=== PATIENT | male | born 1980 | race Caucasian/White ===

== ENCOUNTER 2018-06-10 18:45 | Inpatient (IN) | payer MEDICARE, OTHER ==
[~2018-06-10] VITALS: Ht 185.4 cm; Wt 131.8 kg
--- NOTE | ~2018-06-10 | CN ---
PATIENT NAME:RONEL TIWARI MEDICAL RECORD: [id number] : 76 LOCATION:[facility] D.2109 ADMIT DATE: 06/10/18 ACCOUNT: [id number] CONSULTING PHYSICIAN: SO THOMAS REFERRING PHYSICIAN: QIAN MCKEON MD DATE OF CONSULTATION: 06/11/2018 HISTORY OF PRESENT ILLNESS: This is a 37-year-old man who was moving from [place] to [place]. The patient noted onset of chest congestion and on arrival to [place], the patient felt that there was some mucus inside the lungs, tried to cough it up, but was unsuccessful and all of a sudden was able to cough thick secretions with some blood in it. The patient subsequently had severe chest pains, which was worse on touching. He was unable to take a deep breath. The patient was seen in the Emergency Room. CT scan for pulmonary embolism was negative. He was noted to have mild perihilar infiltrate on the right. The patient was admitted for further evaluation and treatment. PAST MEDICAL HISTORY: Remarkable for hypertension and pulmonary embolism. PAST SURGICAL HISTORY: Includes appendectomy illiotomy. ALLERGIES: There are no known allergies. MEDICATIONS ON ADMISSION: Include metoprolol XL 25 mg daily, Plavix 75 mg b.i.d., lisinopril 5 mg b.i.d., Protonix 40 mg b.i.d., Bentyl 20 mg t.i.d., sulfasalazine Azulfidine 2000 mg b.i.d., morphine 15 mg b.i.d., oxycodone 5 mg q. 4 hours p.r.n. FAMILY HISTORY: Remarkable for cardiovascular disease, lung disease, cancer, hypertension. SOCIAL HISTORY: The patient used to smoke in the past. Does not smoke, drink, or use illicit drugs. REVIEW OF SYSTEMS: GENERAL AND CONSTITUTIONAL: The patient denies any fever or chills, weight loss. SHEENT: There is no headache, nasal drainage, or sore throat. CARDIOPULMONARY: The patient denies any orthopnea or PND. He has anterior right costochondral pain, worse with deep breathing. GASTROINTESTINAL: There is no nausea, vomiting, or abdominal pain. GENITOURINARY: There is no frequency or dysuria. PHYSICAL EXAMINATION: GENERAL: Reveals a young man who is in no acute distress. VITAL SIGNS: Temperature 98.8, heart rate of 81, respiratory rate of 18, blood pressure 107/58. SHEENT: Unremarkable. NECK: Supple. CHEST: Showed right costochondral tenderness. The patient is hypoventilating because of pain. CARDIAC: Shows no jugular venous distention, murmur, or gallops. ABDOMEN: Benign. EXTREMITIES: There is no clubbing, cyanosis, or edema. CONSULT REPORT [id number] RNOEL TIWARI LABORATORY EXAMINATION: Showed white count is 7.5, hemoglobin 11 and platelet count is 325,000. Chemistry is unremarkable. D-dimer is 0.75. Coronary angiogram, pulmonary emboli cannot be excluded. There is airspace disease throughout both lower lobes, greater on the right than the left. Chest x-ray showed right perihilar airspace disease suggesting pneumonia. Doppler venogram showed no acute deep venous thrombosis of bilateral lower extremities. ASSESSMENT: 1. Pneumonia. 2. Costochondritis. 3. Hypertension. 4. History of blood clots. Wells criteria does not suggest any acute pulmonary embolism. PLAN: 1. Continue antibiotics. 2. Bronchodilators. 3. Muscle relaxant and anti-inflammatory agents. 4. DVT prophylaxis with Lovenox. Thank you Dr. Mckeon for this consultation. Time spent 60 minutes. TRANSINT:[id number] Voice Confirmation ID: [id number] DOCUMENT ID: [id number] SO THOMAS at 1721 CC: [id number] DICTATION DATE: 06/11/18 1700 RELAY MECHANIC: 06/12/18 0201 ADM IN [place] [id number] [place] [address]
--- NOTE | ~2018-06-10 | PN ---
PATIENT:RONEL TIWARI MEDICAL RECORD: [id number] LOCATION:D. D.210 ADMISSION DATE: 06/10/18 PROGRESS NOTE DATE OF SERVICE: 06/12/2018 SUBJECTIVE: This is a 37-year-old man who reportedly has some congestion with thick secretions and coughed very hard and subsequently had chest pain. The patient was seen in the Emergency Room and admission was advised. EKG was normal. Troponin I was also normal. The patient had costochondral tenderness. The patient still complains of pain. PHYSICAL EXAMINATION: GENERAL: Physical exam reveals a young man who is in no acute distress. VITAL SIGNS: Temperature 97.9, heart rate of 79, respiratory rate of 20, blood pressure 116/66, and saturation is 94%. SHEENT: Unremarkable. NECK: Supple. LUNGS: Clear. There is chest wall tenderness in the right costochondral area. Auscultation is clear. HEART: Exam shows no jugular venous distention and no murmur or gallops. ABDOMEN: Benign. EXTREMITIES: No clubbing, cyanosis or edema. LABORATORY DATA: Exam showed a white count of 7.1, hemoglobin 11.3, and platelet count is 349. Chemistry is unremarkable. Creatinine is 0.9, BUN is 7. Chest x-ray showed no acute chest findings. ASSESSMENT: Acute costochondritis. The patient is on Soma as well as pain medications. PLAN: 1. Continue treatment. 2. Disposition per PCP or attending. 3. We will sign off the patient and if needed, please call. 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
[2018-06-10] MEDS ORDERED: TOPROL XL25 MG PO (18:53)
[2018-06-10] MEDS ORDERED: PLAVIX75 MG PO (18:54)
[2018-06-10] MEDS ORDERED: PROTONIX40 MG PO (18:55)
[2018-06-10] MEDS ORDERED: LISINOPRIL5 MG PO (18:55)
[2018-06-10] MEDS ORDERED: BENTYL 20 MG TA20 MG PO (18:56)
[2018-06-10] MEDS ORDERED: MORPHINE IMMEDI15 MG PO (18:57)
[2018-06-10] MEDS ORDERED: AZULFIDINE500 MG PO (18:57)
[2018-06-10] MEDS ORDERED: OXYCODONE HCL5 MG PO (18:58)
[2018-06-10 19:18] LABS: BASOPHILS 0.2 % (0-2); EOSINOPHILS 3.5 % (0-7); HEMATOCRIT 39.2 % (42.0-54.0); HEMOGLOBIN 12.5 g/dL (13.5-17.5); IMMATURE GRANULOCYTES 0.4 % (0-5); LYMPHOCYTES 28.9 % (15-50); MCHC 31.9 g/dL (31.0-37.0); MCV 84.7 fL (80.0-100.0); MEAN PLATELET VOLUME 9.8 fL (7.4-10.4); MONOCYTES 9.7 % (2-11); NEUTROPHILS 57.3 % (40-80); PLATELET COUNT 390 10x3/uL (130-400); RBC 4.63 10x6/uL (4.20-6.10); RDW 15.8 % (11.5-14.5)
[2018-06-10 19:45] LABS: ALBUMIN 3.1 g/dL (3.4-5.0); ALKALINE PHOSPHATASE 111 U/L (46-116); ALT (SGPT) 62 U/L (10-68); BILIRUBIN - TOTAL 0.33 mg/dL (0.2-1.3); CALC OSMOLALITY 280 mosm/kg (275-300); CALCIUM 8.9 mg/dL (8.5-10.1); CARBON DIOXIDE 26.8 mmol/L (21.0-32.0); CHLORIDE - SERUM 105 mmol/L (98-107); CREATININE - SERUM 1.2 mg/dL (0.6-1.3); GLUCOSE 99 mg/dL (74-106); POTASSIUM - SERUM 3.9 mmol/L (3.5-5.1); PROTEIN - SERUM 7.6 g/dL (6.4-8.2); SODIUM 142 mmol/L (136-145); UREA NITROGEN 8 mg/dL (7-18); eGFR NON AFRICAN AMERICAN 72 mL/min (90-120)
[2018-06-10 19:47] LABS: CKMB 0.4 U/L (0.0-3.6)
[2018-06-10 19:48] LABS: TROPONIN-I < 0.017 ng/mL (0.000-0.060)
[2018-06-10 21:30] VITALS: BP 145/86
[2018-06-11] VITALS (8 sets, daily range): BP systolic 107–134; BP diastolic 58–80; BMI 38.3; BMI 38.2
[2018-06-11 05:27] LABS: CALC OSMOLALITY 281 mosm/kg (275-300); CALCIUM 7.7 mg/dL (8.5-10.1); CARBON DIOXIDE 24.4 mmol/L (21.0-32.0); CHLORIDE - SERUM 108 mmol/L (98-107); GLUCOSE 102 mg/dL (74-106); POTASSIUM - SERUM 3.8 mmol/L (3.5-5.1); SODIUM 142 mmol/L (136-145); UREA NITROGEN 9 mg/dL (7-18)
[2018-06-11 05:32] LABS: CREATININE - SERUM 0.8 mg/dL (0.6-1.3); eGFR NON AFRICAN AMERICAN > 90 mL/min (90-120)
[2018-06-11 05:47] LABS: BASOPHILS 0.3 % (0-2); EOSINOPHILS 3.4 % (0-7); HEMATOCRIT 35.2 % (42.0-54.0); IMMATURE GRANULOCYTES 0.3 % (0-5); LYMPHOCYTES 26.8 % (15-50); MCH 26.4 pg (26.0-34.0); MCHC 31.3 g/dL (31.0-37.0); MCV 84.6 fL (80.0-100.0); MEAN PLATELET VOLUME 9.8 fL (7.4-10.4); MONOCYTES 10.2 % (2-11); PLATELET COUNT 325 10x3/uL (130-400); RBC 4.16 10x6/uL (4.20-6.10); RDW 15.9 % (11.5-14.5); WBC 7.5 10x3/uL (4.8-10.8)
[2018-06-12 04:00] VITALS: BP 126/80
[2018-06-12 05:40] LABS: BASOPHILS 0.3 % (0-2); EOSINOPHILS 3.1 % (0-7); HEMATOCRIT 36.5 % (42.0-54.0); HEMOGLOBIN 11.3 g/dL (13.5-17.5); IMMATURE GRANULOCYTES 0.3 % (0-5); LYMPHOCYTES 31.8 % (15-50); MCH 26.3 pg (26.0-34.0); MCV 85.1 fL (80.0-100.0); MONOCYTES 10.9 % (2-11); NEUTROPHILS 53.6 % (40-80); PLATELET COUNT 349 10x3/uL (130-400); RBC 4.29 10x6/uL (4.20-6.10); RDW 15.6 % (11.5-14.5); WBC 7.1 10x3/uL (4.8-10.8)
[2018-06-12 06:41] LABS: ALBUMIN 2.5 g/dL (3.4-5.0); ALKALINE PHOSPHATASE 94 U/L (46-116); ALT (SGPT) 51 U/L (10-68); CALC OSMOLALITY 276 mosm/kg (275-300); CALCIUM 7.8 mg/dL (8.5-10.1); CARBON DIOXIDE 25.6 mmol/L (21.0-32.0); CHLORIDE - SERUM 106 mmol/L (98-107); CREATININE - SERUM 0.9 mg/dL (0.6-1.3); GLUCOSE 90 mg/dL (74-106); POTASSIUM - SERUM 3.6 mmol/L (3.5-5.1); PROTEIN - SERUM 6.6 g/dL (6.4-8.2); SODIUM 140 mmol/L (136-145); UREA NITROGEN 7 mg/dL (7-18); eGFR NON AFRICAN AMERICAN > 90 mL/min (90-120)
[2018-06-12 08:37] VITALS: BP 132/70
[2018-06-12 12:27] VITALS: BP 116/66
[2018-06-12 20:00] VITALS: BP 120/62
[2018-06-13] VITALS: BP 114/65
[2018-06-13 04:00] VITALS: BP 116/69
[2018-06-13 05:06] LABS: BASOPHILS 0.1 % (0-2); EOSINOPHILS 1.8 % (0-7); HEMATOCRIT 35.8 % (42.0-54.0); HEMOGLOBIN 11.2 g/dL (13.5-17.5); IMMATURE GRANULOCYTES 0.4 % (0-5); LYMPHOCYTES 21.4 % (15-50); MCH 26.4 pg (26.0-34.0); MCHC 31.3 g/dL (31.0-37.0); MCV 84.2 fL (80.0-100.0); MEAN PLATELET VOLUME 9.8 fL (7.4-10.4); MONOCYTES 11.9 % (2-11); NEUTROPHILS 64.4 % (40-80); PLATELET COUNT 317 10x3/uL (130-400); RBC 4.25 10x6/uL (4.20-6.10); RDW 15.6 % (11.5-14.5); WBC 7.7 10x3/uL (4.8-10.8)
[2018-06-13 05:48] LABS: ALBUMIN 2.6 g/dL (3.4-5.0); ALKALINE PHOSPHATASE 94 U/L (46-116); ALT (SGPT) 55 U/L (10-68); BILIRUBIN - TOTAL 0.53 mg/dL (0.2-1.3); CALC OSMOLALITY 275 mosm/kg (275-300); CALCIUM 8.3 mg/dL (8.5-10.1); CHLORIDE - SERUM 103 mmol/L (98-107); GLUCOSE 95 mg/dL (74-106); POTASSIUM - SERUM 3.5 mmol/L (3.5-5.1); PROTEIN - SERUM 6.8 g/dL (6.4-8.2); SODIUM 139 mmol/L (136-145); UREA NITROGEN 7 mg/dL (7-18); eGFR NON AFRICAN AMERICAN 88 mL/min (90-120)
[2018-06-13 09:39] VITALS: BP 106/75
[2018-06-13 11:17] LABS: % SATURATION 5 % (15-55); IRON 18 ug/dl (35-150); TOTAL IRON BIND CAPACITY 309 ug/dl (260-445); UNSAT IRON BIND CAPACITY 291 ug/dl (150-375)
[2018-06-13 13:23] VITALS: Ht 185.4 cm; Wt 131.8 kg
[2018-06-13 17:05] VITALS: BP 114/60
[2018-06-13 20:36] VITALS: BP 110/53
[2018-06-14 04:59] VITALS: BP 121/56
[2018-06-14 06:08] LABS: BASOPHILS 0.4 % (0-2); EOSINOPHILS 2.2 % (0-7); HEMATOCRIT 34.7 % (42.0-54.0); HEMOGLOBIN 10.8 g/dL (13.5-17.5); IMMATURE GRANULOCYTES 0.4 % (0-5); LYMPHOCYTES 32.7 % (15-50); MCH 26.3 pg (26.0-34.0); MCHC 31.1 g/dL (31.0-37.0); MCV 84.6 fL (80.0-100.0); MEAN PLATELET VOLUME 9.7 fL (7.4-10.4); MONOCYTES 10.4 % (2-11); NEUTROPHILS 53.9 % (40-80); PLATELET COUNT 330 10x3/uL (130-400); RDW 15.6 % (11.5-14.5); WBC 6.7 10x3/uL (4.8-10.8)
[2018-06-14 06:21] LABS: ALBUMIN 2.5 g/dL (3.4-5.0); ALKALINE PHOSPHATASE 88 U/L (46-116); ALT (SGPT) 48 U/L (10-68); BILIRUBIN - TOTAL 0.28 mg/dL (0.2-1.3); CALC OSMOLALITY 285 mosm/kg (275-300); CALCIUM 8.2 mg/dL (8.5-10.1); CARBON DIOXIDE 27.5 mmol/L (21.0-32.0); CHLORIDE - SERUM 108 mmol/L (98-107); CREATININE - SERUM 1.1 mg/dL (0.6-1.3); GLUCOSE 94 mg/dL (74-106); POTASSIUM - SERUM 3.7 mmol/L (3.5-5.1); PROTEIN - SERUM 6.5 g/dL (6.4-8.2); SODIUM 144 mmol/L (136-145); eGFR NON AFRICAN AMERICAN 79 mL/min (90-120)
[2018-06-14 06:23] LABS: UREA NITROGEN 9 mg/dL (7-18)
[2018-06-14 08:27] VITALS: BP 125/65
[2018-06-14] MEDS ORDERED: LEVAQUIN750 MG PO (11:00)
[2018-06-14] MEDS ORDERED: IBUPROFEN600 MG PO (11:01)
[2018-06-14 12:02] VITALS: BP 123/73
[2018-06-17 11:21] LABS: FACTOR II DNA ANALYSIS Negative (())
== END 2018-06-14 14:36 | disposition home or self-care (01) | DRG 205 ==
LOC: D.ER 18:45 → D.M2 22:09
PROVIDERS: Family Medicine; Family Medicine Adult Medicine; Internal Medicine Hematology & Oncology; Internal Medicine Nephrology
DX: M94.0 Chondrocostal junction syndrome [Tietze] (principal); J18.9 Pneumonia, unspecified organism; K50.90 Crohn's disease, unspecified, without complications; I10 Essential (primary) hypertension; D64.9 Anemia, unspecified

== ENCOUNTER → 2018-06-29 08:09 | Outpatient (CLI) | payer MEDICARE, OTHER ==
[2018-06-13 13:23] VITALS: BMI 38.2
[~2018-06-29 08:09] MED LIST: AZULFIDINE500 MG PO; BENTYL 20 MG TA20 MG PO; IBUPROFEN600 MG PO; LEVAQUIN750 MG PO; LISINOPRIL5 MG PO; MORPHINE IMMEDI15 MG PO; OXYCODONE HCL5 MG PO; PLAVIX75 MG PO; PROTONIX40 MG PO; TOPROL XL25 MG PO
== END | disposition home or self-care (01) ==
LOC: D.CT 08:09
DX: Z86.711 Personal history of pulmonary embolism (principal)

== ENCOUNTER → 2018-08-17 11:37 | Outpatient (CLI) | payer BC, MEDICARE ==
[2018-06-13 13:23] VITALS: BMI 38.2
[2018-08-17 12:22] LABS: ALBUMIN 3.2 g/dL (3.4-5.0); ALKALINE PHOSPHATASE 113 U/L (46-116); ALT (SGPT) 71 U/L (10-68); BILIRUBIN - TOTAL 0.26 mg/dL (0.2-1.3); CALC OSMOLALITY 283 mosm/kg (275-300); CALCIUM 8.9 mg/dL (8.5-10.1); CARBON DIOXIDE 26.9 mmol/L (21.0-32.0); CHLORIDE - SERUM 105 mmol/L (98-107); CREATININE - SERUM 1.1 mg/dL (0.6-1.3); GLUCOSE 111 mg/dL (74-106); POTASSIUM - SERUM 4.2 mmol/L (3.5-5.1); PROTEIN - SERUM 7.6 g/dL (6.4-8.2); SODIUM 142 mmol/L (136-145); UREA NITROGEN 13 mg/dL (7-18); eGFR NON AFRICAN AMERICAN 79 mL/min (90-120)
[2018-08-17 12:27] LABS: BASOPHILS 0.3 % (0-2); EOSINOPHILS 2.9 % (0-7); HEMATOCRIT 40.4 % (42.0-54.0); HEMOGLOBIN 12.8 g/dL (13.5-17.5); IMMATURE GRANULOCYTES 0.3 % (0-5); LYMPHOCYTES 21.7 % (15-50); MCH 26.9 pg (26.0-34.0); MCHC 31.7 g/dL (31.0-37.0); MCV 85.1 fL (80.0-100.0); MEAN PLATELET VOLUME 9.6 fL (7.4-10.4); MONOCYTES 7.3 % (2-11); NEUTROPHILS 67.5 % (40-80); PLATELET COUNT 333 10x3/uL (130-400); RBC 4.75 10x6/uL (4.20-6.10); RDW 15.2 % (11.5-14.5); WBC 10.6 10x3/uL (4.8-10.8)
[2018-08-17 14:12] LABS: ERYTHROCYTE SEDIMENTATION RATE 20 mm/hr (0-15)
== END | disposition home or self-care (01) ==
LOC: D.LAB 11:37 → D.CT 12:00
PROVIDERS: Internal Medicine Gastroenterology
DX: R10.84 Generalized abdominal pain (principal); K50.90 Crohn's disease, unspecified, without complications; K52.9 Noninfective gastroenteritis and colitis, unspecified; K92.1 Melena

== ENCOUNTER → 2018-08-29 08:12 | Outpatient (CLI) | payer BC, MEDICARE ==
[2018-06-13 13:23] VITALS: BMI 38.2
== END | disposition home or self-care (01) ==
LOC: D.NM 08:00
DX: K80.20 Calculus of gallbladder without cholecystitis without obstruction (principal); R10.9 Unspecified abdominal pain

== ENCOUNTER 2018-09-21 06:50 | Day surgery (SDC) | payer MEDICARE ==
[2018-09-20 08:48] LABS: HEMOGLOBIN 13.4 g/dL (13.5-17.5); MCH 27.2 pg (26.0-34.0); MCHC 31.9 g/dL (31.0-37.0); MCV 85.2 fL (80.0-100.0); MEAN PLATELET VOLUME 9.8 fL (7.4-10.4); RBC 4.93 10x6/uL (4.20-6.10); RDW 14.6 % (11.5-14.5); WBC 6.9 10x3/uL (4.8-10.8)
[~2018-09-21] VITALS: Ht 185.4 cm; Wt 123.8 kg
[~2018-09-21 06:50] MED LIST changes: +LIPITOR10 MG PO; +MELATONIN10 M1 PO; +MS CONTIN30 MG PO; +NEURONTIN600 MG PO
[2018-09-21 07:36] VITALS: BP 119/78; Ht 185.4 cm; Wt 123.8 kg
[2018-09-21] MEDS ORDERED: HYDROCODON-ACE1 EAC7 PO (10:53)
== END 2018-09-21 15:50 | disposition home or self-care (01) ==
LOC: D.OPS 06:50 → D.PAN 09:45 → D.OPS 15:50
PROVIDERS: Anesthesiology
DX: K81.1 Chronic cholecystitis (principal); K66.0 Peritoneal adhesions (postprocedural) (postinfection); K50.90 Crohn's disease, unspecified, without complications

== ENCOUNTER → 2018-12-20 08:23 | Outpatient (CLI) | payer BC, MEDICARE ==
[2018-09-21 07:36] VITALS: BMI 36.1
[~2018-12-20 08:23] MED LIST changes: +HYDROCODON-ACE1 EAC7 PO
== END | disposition home or self-care (01) ==
LOC: D.RAD 12-19 10:00 → D.MRI 12-19 11:00 → D.RAD 08:23
DX: M25.552 Pain in left hip (principal)

== ENCOUNTER 2019-03-06 07:30 | Day surgery (SDC) | payer BC, MEDICARE ==
[~2019-03-06] VITALS: Ht 185.4 cm; Wt 128.2 kg
[2019-03-06 08:08] LABS: ANION GAP 13.6 mmol/L (8-16); CALCIUM 9.2 mg/dL (8.5-10.1); CARBON DIOXIDE 27.1 mmol/L (21.0-32.0); CREATININE - SERUM 1.2 mg/dL (0.6-1.3); POTASSIUM - SERUM 3.7 mmol/L (3.5-5.1)
[2019-03-06 08:28] VITALS: BP 128/76; Ht 185.4 cm; Wt 128.2 kg
--- NOTE | 2019-03-06 10:45 | NUR ---
PT DC INSTRUCTIONS REVIEWED AT THIS TIME, PT VERBALIZES UNDERSTANDING AND AGREES. PT IV REMOVED AT THIS TIME, NO REDNESS OR SWELLING NOTED AT SITE.
--- NOTE | 2019-03-06 10:55 | NUR ---
PT LEAVING OPS AT THIS TIME.
[2019-03-07 12:09] LABS: HEMATOCRIT 44.2 % (42.0-54.0); HEMOGLOBIN 12.8 g/dL (13.5-17.5); MCH 25.6 pg (26.0-34.0); MCV 88.4 fL (80.0-100.0); MEAN PLATELET VOLUME 10.7 fL (7.4-10.4); RDW 15.6 % (11.5-14.5); WBC 8.6 10x3/uL (4.8-10.8)
--- NOTE | 2019-03-10 16:05 | OP ---
PATIENT NAME: RONEL TIWARI JR MEDICAL RECORD: [id number] :76 LOCATION:[facility] ADMISSION DATE: SURGEON: JAIR MORRIS DO DATE OF OPERATION: 03/06/2019 PROCEDURE: Colonoscopy with biopsies. INDICATIONS FOR PROCEDURE: Generalized abdominal pain, blood in stool, history of Crohn's disease. SCOPE: SmartProcure video pediatric colonoscope. MEDICATIONS: Propofol 520 mg IV per anesthesia. WITHDRAWAL TIME: 9 minutes. ESTIMATED BLOOD LOSS: Minimal. COMPLICATIONS: None. FINDINGS: Informed consent was given. The patient was made comfortable with the above medication. After reaching an adequate level of sedation by slow IV push, the patient was placed on his left side. A digital rectal examination was performed and was normal. The endoscope was then advanced under direct visualization through the rectum to the ileocolonic anastomosis. This showed evidence of a prior resection involving the terminal ileum. The anastomosis appeared normal. An attempt was made to pass into the terminal ileum, but the endoscope could not traverse the initial terminal ileal site successfully. There were ulcerations which were small and did not show bleeding stigmata other than contact bleeding. It is possible that the site is somewhat strictured or narrowed due to uncontrolled Crohn's. There was some vascularity changes showing decreased vascularity in the area as well. The endoscope was withdrawn from this site and the remainder of the mucosa was looked at carefully. Outside of the terminal ileal site there were no significant inflammatory changes throughout the entire rest of the colon. In the rectum, there was some decreased vascularity, but it did not appear abnormal. There were no polyps seen on today's examination. There were no diverticula either. Retroflexion was performed in the rectum with a normal appearing rectal wall. The endoscope was withdrawn from the patient. The patient tolerated the procedure well and there were no complications. Biopsies were taken with cold forceps of the terminal ileal site ulcerations to confirm that this is uncontrolled Crohn's. IMPRESSION: 1. Uncontrolled Crohn's involving the terminal ileum and ileocolonic anastomosis with some possible stricturing of that anastomosis. 2. Otherwise, normal colon. PLAN AND RECOMMENDATIONS: 1. Discharge home when recovery parameters are met. 2. Follow up biopsy specimen results. 3. Continue current diet. 4. Continue current medications. 5. We will initiate prior authorization for Entyvio or another biologic therapy outside of the tumor necrosis factor-alpha inhibitor family due to nonresponse suspected from increased antibody levels. OPERATIVE REPORT [id number] RONEL TIWARI JR 6. Recall colonoscopy will be dependent on results and therapy. TRANSINT:[id number] Voice Confirmation ID: [id number] DOCUMENT ID: [id number] JAIR MORRIS DO at 1605 CC: [id number] DICTATION DATE: 03/06/19 1001 WAX POT TENDER: 03/06/19 1232 [facility] [place] 03/06/[address] [address]
== END 2019-03-06 10:55 | disposition home or self-care (01) ==
LOC: D.OPS 07:30
PROVIDERS: Anesthesiology; ATTEND Internal Medicine Gastroenterology
DX: K50.00 Crohn's disease of small intestine without complications (principal); Z01.812 Encounter for preprocedural laboratory examination

== ENCOUNTER 2019-03-08 05:43 | Day surgery (SDC) | payer BC, MEDICARE ==
[~2019-03-08] VITALS: Ht 185.4 cm; Wt 127.0 kg
[2019-03-08 06:43] VITALS: BP 123/80; Ht 185.4 cm; Wt 127.0 kg
--- NOTE | 2019-03-10 16:05 | OP ---
PATIENT NAME: RONEL TIWARI JR MEDICAL RECORD: [id number] :76 LOCATION:[facility] ADMISSION DATE: SURGEON: JAIR MORRIS DO DATE OF OPERATION: 03/08/2019 PROCEDURE: EGD with biopsies. INDICATIONS FOR PROCEDURE: Dysphagia and history of Crohn's. SCOPE: Olympus video gastroscope. MEDICATIONS: Propofol 200 mg IV per anesthesia. ESTIMATED BLOOD LOSS: Minimal. COMPLICATIONS: None. FINDINGS: Informed consent was given. The patient was made comfortable with the above medication. After reaching an adequate level of sedation by slow IV push, the patient was placed on his left side. The endoscope was advanced under direct visualization through the mouth to the third portion of the duodenum. The entire esophagus appeared normal without strictures, rings, ulcerations, or other abnormalities. Random cold forceps biopsies were taken from the mid esophagus to rule out the presence of eosinophilic esophagitis. At the GE junction, there was very mild evidence of LA class A reflux-induced esophagitis. The endoscope was advanced beyond the GE junction into the stomach and retroflexed to view the cardia and fundus, which appeared normal. Throughout the body of the stomach and antrum, there was erythema and granularity consistent with possible gastritis. Random biopsies were taken with cold forceps to submit for histopathology and to rule out the presence of H. pylori. The endoscope was advanced beyond the pylorus into the duodenum which appeared normal down to the third portion. The endoscope was withdrawn from the patient. The patient tolerated the procedure well and there were no complications. IMPRESSION: 1. LA class A reflux-induced esophagitis. 2. Gastritis. PLAN AND RECOMMENDATIONS: 1. Discharge home when recovery parameters are met. 2. Follow up biopsy specimen results. 3. Continue current medication. 4. Notify the GI clinic if symptoms worsen or fail to improve. Currently, the patient states that he has been symptom free regarding the dysphagia over a month. If this returns, we will consider further workup to include possible barium esophagram and/or esophageal manometry study. TRANSINT:[id number] Voice Confirmation ID: [id number] DOCUMENT ID: [id number] OPERATIVE REPORT [id number] RONEL TIWARI JR JAIR MORRIS DO at 1604 CC: [id number] DICTATION DATE: 03/08/19805 VALVE TESTER: 03/08/19 0835 DEP SDC 03/08/19 [facility] [address] [place] [address]
== END 2019-03-08 09:05 | disposition home or self-care (01) ==
LOC: D.OPS 05:43
PROVIDERS: ATTEND Internal Medicine Gastroenterology
DX: K21.0 Gastro-esophageal reflux disease with esophagitis (principal); K29.50 Unspecified chronic gastritis without bleeding; Z01.812 Encounter for preprocedural laboratory examination